=== PATIENT | female | born 1990 | race African-American/Black ===

== ENCOUNTER 2016-08-06 14:56 | Emergency (ER) | payer OTHER ==
[2016-08-06 15:05] VITALS: TEMP 98.2; BMI 30.4
[2016-08-06] MEDS ORDERED: SODIUM CHLORIDE 1,000 ML IV ONE (15:32)
--- NOTE | 2016-08-06 16:20 | PDOC ---
History of Present Illness - General History Source: Patient, Parent(s) - History of Present Illness Timing/Duration: 1 week, intermittent Associated Symptoms: reports: weakness. denies: chest pain, cough, diaphoresis , fever/chills, headaches, loss of appetite, nausea/vomiting, shortness of breath, syncope <Jeremy Kern - Last Filed: 08/06/16 17:00> <Cole Ware - Last Filed: 08/08/16 07:19> - General Chief Complaint: Weakness Stated Complaint: FATIGUE Time Seen by Provider: 08/06/16 15:39 Past History - Past Medical History Other medical history: denies - Immunization History Immunization Up to Date: Yes - Psycho/Social/Smoking Cessation Hx Anxiety: No Suicidal Ideation: No Smoking Status: No Smoking History: Never smoked Number of Cigarettes Smoked Daily: 2 Information on smoking cessation initiated: No Hx Alcohol Use: Yes Drug/Substance Use Hx: No Substance Use Type: Alcohol <Jeremy Kern - Last Filed: 08/06/16 17:00> <Cole Ware - Last Filed: 08/08/16 07:19> - Past Medical History Allergies/Adverse Reactions: Allergies Allergy/AdvReac Type Severity Reaction Status Date / Time No Known Allergies Allergy Verified 08/06/16 15:00 Home Medications: Ambulatory Orders No Home Medications 0 dose .ROUTE UTDICT 05/15/12 Review of Systems - Review of Systems Constitutional: Yes: Weakness. No: Chills, Fever HEENTM: No: Blurred Vision Respiratory: No: Cough, Shortness of Breath Cardiac (ROS): No: Chest Pain, Lightheadedness ABD/GI: No: Diarrhea, Nausea, Vomiting, Abdominal cramping : No: Dysuria Neurological: No: Headache, Dizziness <Jeremy Kern - Last Filed: 08/06/16 17:00> *Physical Exam - Vital Signs Last Vital Signs Temp Pulse Resp BP Pulse Ox 98.2 F 83 18 119/67 100 08/06/16 15:00 08/06/16 15:00 08/06/16 15:00 08/06/16 15:00 08/06/16 15:00 - Physical Exam General Appearance: Yes: Appropriately Dressed. No: Apparent Distress HEENT: positive: Normal Voice Neck: positive: Supple Respiratory/Chest: positive: Lungs Clear, Normal Breath Sounds. negative: Respiratory Distress Cardiovascular: positive: Regular Rate, S1, S2 Gastrointestinal/Abdominal: positive: Soft. negative: Tender Musculoskeletal: negative: CVA Tenderness Extremity: positive: Normal Inspection Integumentary: positive: Dry, Warm Neurologic: positive: Fully Oriented, Alert, Normal Mood/Affect, Motor Strength 5/5 <Jeremy Kern - Last Filed: 08/06/16 17:00> - Vital Signs Last Vital Signs Temp Pulse Resp BP Pulse Ox 98.2 F 80 18 122/63 100 08/06/16 15:00 08/06/16 17:15 08/06/16 17:15 08/06/16 17:15 08/06/16 17:15 <Cole Ware - Last Filed: 08/08/16 07:19> ED Treatment Course - LABORATORY CBC & Chemistry Diagram: 08/06/16 15:40 08/06/16 15:40 <Jeremy Kern - Last Filed: 08/06/16 17:00> - LABORATORY CBC & Chemistry Diagram: 08/06/16 15:40 08/06/16 15:40 - ADDITIONAL ORDERS Additional order review: 08/06/16 15:40 RBC 4.47 MCV 77.9 L MCHC 30.5 L RDW 17.0 H MPV 7.3 L Neutrophils % 56.1 Lymphocytes % 34.5 Monocytes % 7.7 Eosinophils % 0.9 Basophils % 0.8 - Medications Given in the ED: ED Medications Discontinued Medications Generic Name Dose Route Start Last Admin Trade Name Shayneq PRN Reason Stop Dose Admin Sodium Chloride 1,000 mls @ 1,000 mls/hr 08/06/16 15:32 08/06/16 16:09 Normal Saline - IV 08/06/16 16:31 1,000 mls/hr .Q1H ONE Administration <Cole Ware - Last Filed: 08/08/16 07:19> Medical Decision Making - Medical Decision Making 08/06/16 16:15 26-year-old female, denies any past medical history, here with mother, presenting with generalized fatigue. Patient reports that for the past week she has been "running around a lot", including going to parties at night and coming home in the a.m., only to have to report to work several hours later. Did this several times this week and states she intermittently feels fatigued and has had to call out of work once or twice including this am. Does admit that her symptoms does improve when she gets enough rest. Also complaining of personal stressors at home. Suspects her weakness and fatigue is most likely due to stress and being busy, but brought in by mother to rule out medical source. See exam Fatigue in setting of increased activity/stress in young healthy female BIB mother to r/o medical cause Stable and well tor in ED w/ unremarkable exam -basic labs/upreg -anticipate dc w/ lifestyle changes and PMD f/u 08/06/16 16:20 08/06/16 17:01 Labs wnl. Pt stable for discharge at this time <Jeremy Kern - Last Filed: 08/06/16 17:00> - Medical Decision Making 08/08/16 07:19 The patient was seen and evaluated in conjunction with DANIEL Kern under my direct supervision, ancillary studies were reviewed. I agree with the plan as outlined by DANIEL Kern . <Cole Ware - Last Filed: 08/08/16 07:19> *DC/Admit/Observation/Transfer <Jeremy Kern - Last Filed: 08/06/16 17:00> <Cole Ware - Last Filed: 08/08/16 07:19> Diagnosis at time of Disposition: Fatigue due to sleep pattern disturbance - Discharge Dispostion Disposition: HOME Condition at time of disposition: Good - Referrals Referrals: Ariel Petit MD [Primary Care Provider] - - Patient Instructions Printed Discharge Instructions: Tips for Better Sleep, Creating a Healthy Sleep Routine Additional Instructions: Your blood work and tests were all normal today. There is no obvious medical cause of your complaints at this time. Maintain adequate hydration at home and get adequate sleep. - Post Discharge Activity Work/School Note: Back to Work
[2016-08-06 16:21] LABS: BASOPHIL 0.8 % (0-2.0); EOSINOPHIL 0.9 % (0-4.5); MCH 23.8 pg (25.7-33.7); MCHC 30.5 g/dl (32.0-36.0); MEAN CELL VOLUME 77.9 fl (80-96); MEAN PLT VOLUME 7.3 fl (7.5-11.1); NEUTROPHILS 56.1 % (42.8-82.8); PLATELET COUNT 441 K/MM3 (134-434); WHITE BLOOD COUNT 4.9 K/mm3 (4.0-10.0)
[2016-08-06 16:28] LABS: ALBUMIN 3.6 g/dl (3.4-5.0); ANION GAP 8 (8-16); CALCIUM 8.9 mg/dL (8.5-10.1); CO2 28 mmol/L (21-32); CREATININE 0.8 mg/dL (0.55-1.02); GLUCOSE,RANDOM 89 mg/dL (74-106); SGPT/ALT 20 U/L (12-78)
[2016-08-06 16:31] LABS: ALK PHOS 82 U/L (45-117); BILIRUBIN,TOTAL 0.9 mg/dL (0.2-1.0); SGOT/AST 15 U/L (15-37); TOT PROT 7.1 g/dl (6.4-8.2)
[2016-08-06 16:39] LABS: URINE APPEARANCE SLCLOUDY; URINE BILIRUBIN NEGATIVE (NEGATIVE); URINE BLOOD NEGATIVE (NEGATIVE); URINE COLOR YELLOW; URINE GLUCOSE (UA) NEGATIVE (NEGATIVE); URINE KETONE NEGATIVE (NEGATIVE); URINE NITRITE NEGATIVE (NEGATIVE); URINE PROTEIN NEGATIVE (NEGATIVE); URINE UROBILINOGEN NEGATIVE E.U./dl (0.2-1.0)
[2016-08-06 17:03] LABS: URINE LEUK ESTERASE 1+ (NEGATIVE)
[2016-08-06 17:10] LABS: URINE MUCUS RARE; URINE RBC 1 /hpf (0-3); URINE WBC 5 /hpf (3-5)
[2016-08-06 17:17] VITALS: BP 122/63; PULSE 80
== END 2016-08-06 17:18 | disposition home or self-care (01) ==
LOC: JER 14:56
PROC: 3E0337Z Introduction of Electrolytic and Water Balance Substance into Peripheral Vein, Percutaneous Approach (ICD-10-PCS; principal; 2016-08-06)
DX: R53.83 Other fatigue (principal); Z72.0 Tobacco use
CPT/HCPCS: 36415; 80053; 81003; 81015; 84703; 85025; 99283-25

== ENCOUNTER 2017-06-29 10:41 | Emergency (ER) | payer OTHER ==
[2017-06-29 10:47] VITALS: BP 116/66; PULSE 71; TEMP 98.6; BMI 32.6
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
== END 2017-06-29 11:32 | disposition home or self-care (01) ==
LOC: JERFT 10:41
DX: S80.02XA Contusion of left knee, initial encounter (principal); W22.03XA Walked into furniture, initial encounter; Y93.89 Activity, other specified; Y92.9 Unspecified place or not applicable
CPT/HCPCS: 99281-25

== ENCOUNTER 2018-02-16 16:50 | Emergency (ER) | payer OTHER ==
[2018-02-16 16:55] VITALS: BP 110/55; PULSE 79; TEMP 98.3; BMI 67.0
[2018-02-16] MEDS ORDERED: IBUPROFEN 400 MG TABLET (FP) PO ONE ×3 (17:39→17:41)
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
== END 2018-02-16 17:47 | disposition home or self-care (01) ==
LOC: JERFT 16:50
DX: S09.8XXA Other specified injuries of head, initial encounter (principal); W50.0XXA Accidental hit or strike by another person, initial encounter; Y93.89 Activity, other specified; Y92.218 Other school as the place of occurrence of the external cause; Y99.0 Civilian activity done for income or pay
CPT/HCPCS: 99281-25

== ENCOUNTER 2019-01-04 15:24 | Emergency (ER) | payer SELFPAY ==
[2019-01-04] MEDS ORDERED: KETOROLAC TROMETHAMINE 60 MG/2 ML VIAL IM ONE (15:30)
--- NOTE | 2019-01-04 15:30 | PDOC ---
Rapid Medical Evaluation Time Seen by Provider: 01/04/19 15:27 Medical Evaluation: Allergies Allergy/AdvReac Type Severity Reaction Status Date / Time No Known Allergies Allergy Verified 02/16/18 16:55 01/04/19 15:27 CC: right sided body pain s/p slip and fall 12/27 PE: no focal findings Orders: toradol- denies and accepts risks Patient will proceed to ER for continued evaluation. Discharge Disposition - Diagnosis Hip pain - Referrals - Patient Instructions - Post Discharge Activity
[2019-01-04 15:32] VITALS: BP 115/70; PULSE 71; TEMP 97.9; BMI 34.1
--- NOTE | 2019-01-04 16:28 | PDOC ---
History of Present Illness - General Chief Complaint: Injury Stated Complaint: FALL/ RT. SIDE PAIN Time Seen by Provider: 01/04/19 15:27 - History of Present Illness Initial Comments: 01/04/19 16:25 28-year-old female without comorbidities presents for evaluation of right shoulder and back pain after fall 7 days ago. She did not hit her head. No post injury nausea vomiting visual changes or headaches. Past History - Past Medical History Allergies/Adverse Reactions: Allergies Allergy/AdvReac Type Severity Reaction Status Date / Time No Known Allergies Allergy Verified 01/04/19 15:32 Home Medications: Ambulatory Orders Cyclobenzaprine HCl [Flexeril 10 mg] 10 mg PO HS PRN #10 tablet 01/04/19 COPD: No - Immunization History Immunization Up to Date: Yes - Psycho Social/Smoking Cessation Hx Smoking Status: No Smoking History: Never smoked Number of Cigarettes Smoked Daily: 2 Information on smoking cessation initiated: No Hx Alcohol Use: No Drug/Substance Use Hx: No Substance Use Type: Alcohol Review of Systems - Review of Systems Musculoskeletal: Yes: Joint Pain *Physical Exam - Vital Signs Last Vital Signs Temp Pulse Resp BP Pulse Ox 97.9 F 71 17 115/70 100 01/04/19 15:29 01/04/19 15:29 01/04/19 15:29 01/04/19 15:29 01/04/19 15:29 - Physical Exam Comments: 01/04/19 16:26 GENERAL: The patient is awake, alert, and fully oriented, in no acute distress. HEAD: Normal with no signs of trauma. EYES: sclera anicteric, conjunctiva clear. ENT: Ears normal NECK: Normal range of motion LUNGS: Breath sounds equal, clear to auscultation bilaterally. No wheezes, and no crackles. HEART: S1 and S2 without murmur, rub or gallop. ABDOMEN: Soft, nontender, normoactive bowel sounds. No guarding, no rebound. No masses. EXTREMITIES: Normal range of motion, no edema. No clubbing or cyanosis. No cords, erythema, or tenderness. NEUROLOGICAL: Cranial nerves II through XII grossly intact. Normal speech, normal gait. PSYCH: Normal mood, normal affect. SKIN: Warm, Dry, normal turgor, no rashes or lesions noted. Right shoulder range of motion is full. Supraspinatus isolation is unable to be tolerated. She has mildly positive impingement maneuvers on the right normal neck range of motion negative Spurling sign. Mild parascapular muscle spasm no gross sensorimotor deficits neurovascular intact. 01/04/19 16:27 Right hip range of motion is full with mild tenderness. Normal internal and external rotation without pain neurovascularly intact right lower extremity Medical Decision Making - Medical Decision Making 01/04/19 16:26 Right shoulder strain upper back strain discussed use of Flexeril and follow-up with Ortho Discharge - Discharge Information Problems reviewed: Yes Clinical Impression/Diagnosis: Hip pain, Right shoulder strain, Upper back strain, Contusion, hip Condition: Stable Disposition: HOME - Admission No - Follow up/Referral Referrals: Ariel Petit MD [Primary Care Provider] - Ajit Del Cid DO [Staff Physician] - - Patient Discharge Instructions Additional Instructions: Please take the muscle relaxer as directed. Return to the emergency room for worsening symptoms. Tylenol Motrin as directed for pain. Follow-up with orthopedic surgery in 1 to 2 days without fail for further evaluation and treatment options. - Post Discharge Activity
[2019-01-04] MEDS ORDERED: KETOROLAC TROMETHAMINE 60 MG/2 ML VIAL ONE (17:05)
== END 2019-01-04 17:15 | disposition home or self-care (01) ==
LOC: JERFT 15:24
PROC: 3E0233Z Introduction of Anti-inflammatory into Muscle, Percutaneous Approach (ICD-10-PCS; principal; 2019-01-04)
DX: S46.811A Strain of other muscles, fascia and tendons at shoulder and upper arm level, right arm, initial encounter (principal); S29.012A Strain of muscle and tendon of back wall of thorax, initial encounter; S70.01XA Contusion of right hip, initial encounter; W01.0XXA Fall on same level from slipping, tripping and stumbling without subsequent striking against object, initial encounter; Y93.89 Activity, other specified; Y92.89 Other specified places as the place of occurrence of the external cause; Y99.8 Other external cause status
CPT/HCPCS: 99281-25

== ENCOUNTER 2020-04-03 17:57 | Emergency (ER) | payer OTHER ==
[2020-04-03 18:15] VITALS: BP 116/59; PULSE 88; TEMP 98.9; BMI 70.4
[2020-04-03] MEDS ORDERED: IBUPROFEN 400 MG TABLET (FP) PO ONE ×2 (18:28)
== END 2020-04-03 18:34 | disposition home or self-care (01) ==
LOC: JERFT 17:57
DX: S46.911A Strain of unspecified muscle, fascia and tendon at shoulder and upper arm level, right arm, initial encounter (principal)
CPT/HCPCS: 99283-25

== ENCOUNTER 2020-11-12 13:29 | Emergency (ER) | payer OTHER ==
[2020-11-12 13:40] VITALS: BP 100/60; PULSE 86; TEMP 98; BMI 28.8
[2020-11-12] MEDS ORDERED: DIPHTH,PERTUSS(ACELL),TET 0.5 ML DISP.SYRIN IM ONE ×2 (13:53→13:56)
== END 2020-11-12 14:35 | disposition home or self-care (01) ==
LOC: JERFT 13:29
PROC: 3E0234Z Introduction of Serum, Toxoid and Vaccine into Muscle, Percutaneous Approach (ICD-10-PCS; principal; 2020-11-12)
DX: S50.872A Other superficial bite of left forearm, initial encounter (principal); W50.3XXA Accidental bite by another person, initial encounter; Y92.219 Unspecified school as the place of occurrence of the external cause
CPT/HCPCS: 90715; 99284-25

== ENCOUNTER 2021-05-18 19:19 | Emergency (ER) | payer OTHER ==
[2021-05-18 19:28] VITALS: TEMP 98.6; BMI 31.1
[2021-05-18] MEDS ORDERED: SODIUM CHLORIDE 0.9% 500 ML INFUS.BAG IV ONE ×3 (20:12→23:13)
[2021-05-18 20:39] LABS: BASO % 0.5 % (0-2.0); EOS % 0.2 % (0-4.5); HEMATOCRIT 42.5 % (32.4-45.2); HEMOGLOBIN 14.4 GM/dL (10.7-15.3); LYMPH % 6.1 % (8-40); MCH 31.5 pg (25.7-33.7); MEAN CELL VOLUME 92.7 fl (80-96); MEAN PLT VOLUME 7.3 fl (7.5-11.1); MONO % 8.8 % (3.8-10.2); NEUT % 84.4 % (42.8-82.8); PLATELET COUNT 347 10^3/uL (134-434); RBC 4.58 M/mm3 (3.60-5.2); RDW 14.1 % (11.6-15.6)
[2021-05-18 21:00] LABS: ALBUMIN 3.8 g/dl (3.4-5.0); BLOOD UREA NITROGEN 7.3 mg/dL (7-18); CALCIUM 9.4 mg/dL (8.5-10.1)
[2021-05-18 21:04] LABS: CREATININE 0.9 mg/dL (0.55-1.3)
[2021-05-18 21:05] LABS: BILIRUBIN,TOTAL 0.9 mg/dL (0.2-1); TOT PROT 7.4 g/dl (6.4-8.2)
[2021-05-19 00:06] VITALS: BP 124/69; PULSE 114
== END 2021-05-19 02:08 | disposition home or self-care (01) ==
LOC: JER 19:19
DX: R53.1 Weakness (principal)
CPT/HCPCS: 36415; 80053; 84443; 84703; 85025; 85379; 99284-25

== ENCOUNTER 2021-08-08 13:36 | Emergency (ER) | payer OTHER ==
[2021-08-08 13:47] VITALS: BP 109/78; PULSE 104; TEMP 98.5; BMI 31.9
[2021-08-08] MEDS ORDERED: KETOROLAC TROMETHAMINE 30 MG/1 ML VIAL IM ONE (14:47)
[2021-08-08] MEDS ORDERED: KETOROLAC TROMETHAMINE 30 MG/1 ML VIAL ONE (15:01)
== END 2021-08-08 15:15 | disposition home or self-care (01) ==
LOC: JERFT 13:36
PROC: 3E023GC Introduction of Other Therapeutic Substance into Muscle, Percutaneous Approach (ICD-10-PCS; principal; 2021-08-08)
DX: M25.562 Pain in left knee (principal)
CPT/HCPCS: 73564-TC-LT-FY; 99284-25

== ENCOUNTER 2021-08-20 18:55 | Emergency (ER) | payer OTHER ==
[2021-08-20 19:17] VITALS: BP 121/76; PULSE 72; TEMP 98.9; BMI 32.4
[2021-08-20] MEDS ORDERED: TETRACAINE 0.5% HCL 0.6ML DROPPER.BOTTLE OS ONE (19:58)
[2021-08-20] MEDS ORDERED: FLUORESCEIN NA 1 EA STRIP OS ONE (19:58)
== END 2021-08-20 21:31 | disposition home or self-care (01) ==
LOC: JERFT 18:55
DX: J30.9 Allergic rhinitis, unspecified (principal)
CPT/HCPCS: 99283-25

== ENCOUNTER 2023-02-03 15:16 | Emergency (ER) | payer OTHER ==
[2023-02-03 15:31] VITALS: BP 116/65; PULSE 79; RESP 18; TEMP 98.3; BMI 31.1
[2023-02-03] MEDS ORDERED: KETOROLAC TROMETHAMINE 30 MG/1 ML VIAL IM ONE (16:36)
[2023-02-03] MEDS ORDERED: KETOROLAC TROMETHAMINE 30 MG/1 ML VIAL ONE (16:40)
== END 2023-02-03 18:13 | disposition home or self-care (01) ==
LOC: JERFT 15:16 → JER 15:16 → JERFT 18:13
PROC: 3E0233Z Introduction of Anti-inflammatory into Muscle, Percutaneous Approach (ICD-10-PCS; principal; 2023-02-03)
DX: S50.12XA Contusion of left forearm, initial encounter (principal); W22.8XXA Striking against or struck by other objects, initial encounter; Y99.0 Civilian activity done for income or pay; Y92.219 Unspecified school as the place of occurrence of the external cause
CPT/HCPCS: 73090-TC-LT-FY; 99284-25